=== PATIENT | female | born 1940 | race Native Hawaiian/Other Pacific Islander ===

== ENCOUNTER 2017-10-24 14:01 | Observation (INO) | payer MEDICARE ==
[2017-10-24 15:25] LABS: BASO # 0.1 K/uL (0.0-0.2); BASO % 0.9 % (0.0-2.0); HEMOGLOBIN 12.3 g/dL (12.0-16.0); LYMPH # 1.5 K/uL (1.0-4.3); LYMPH % 14.3 % (20.0-40.0); MEAN CELL VOLUME 91.9 fl (81.0-99.0); MEAN CORPUSCULAR HEMOGLOBIN 29.8 pg (27.0-31.0); MEAN CORPUSCULAR HGB CONC 32.4 g/dL (33.0-37.0); MEAN PLATELET VOLUME 7.4 fl (7.2-11.7); MONO # 0.5 K/uL (0.0-0.8); MONO % 5.3 % (0.0-10.0); NEUT # 8.2 K/uL (1.8-7.0); NEUT % 79.5 % (50.0-75.0); NRBC % 0.1 % (0.0-0.0); RBC 4.12 Mil/uL (3.80-5.20); RED CELL DISTRIBUTION WIDTH 15.4 % (11.5-14.5); WHITE BLOOD COUNT 10.4 K/uL (4.8-10.8)
[2017-10-24 16:06] LABS: ALB/GLOB RATIO 1.3 (1.0-2.1); ALBUMIN 4.8 g/dL (3.5-5.0); ALT/SGPT 45 U/L (9-52); AST/SGOT 48 U/L (14-36); BLOOD UREA NITROGEN 23 mg/dl (7-17); GFR AFRICAN-AMERICAN > 60; GFR NON-AFRICAN AMERICAN > 60
--- NOTE | 2017-10-24 16:13 | ED PDOC ---
HPI: Female Pain Time Seen by Provider: 10/24/17 14:33 Chief Complaint (Nursing): Female Genitourinary Chief Complaint (Provider): urinary retention History Per: Patient History/Exam Limitations: no limitations Onset/Duration Of Symptoms: Days (x1) Current Symptoms Are (Timing): Still Present Associated Symptoms: Loss Of Appetite, Constipation, Urinary Symptoms (urinary retention). denies: Nausea, Vomiting, Back Pain Additional Complaint(s): dEith Segovia is a 77 year old female, with a past medical history of HTN, hyperlipidemia, diabetes, gout and A-Fib, who presents to the emergency department complaining of inability to urinate onset since yesterday and constipation onset for x2 days. Patient states yesterday she had some pain with urination and when she voided it was in small amounts. Today, she hasn't been able to urinate for the last few hours. Patient reports small amounts of stool yesterday but has not been able to make a bowel movement today. Patient took Miralax, milk of magnesia, and tea to help her go but with no relief. Patient was recently hospitalized at the end of September for hyperkalemia and A-fib, at that time MR #[id number] Patient also reports some lower abdominal pain associated with loss of appetite but denies any back pain, rectal pain, nausea or vomit. No further medical complaints. PMD: Ladarius Winslow Past Medical History Reviewed: Historical Data, Nursing Documentation, Vital Signs Vital Signs: Last Vital Signs Temp 98.0 F 10/24/17 14:28 Pulse 79 10/24/17 14:28 Resp 18 10/24/17 14:28 BP 211/86 H 10/24/17 14:28 Pulse Ox 98 10/24/17 14:28 - Medical History PMH: Atrial Fibrillation, Diabetes (Type-2), HTN, Hyperlipidemia Other PMH: gout - Surgical History Surgical History: No Surg Hx - Family History Family History: States: No Known Family Hx - Social History Current smoker - smoking cessation education provided: No Alcohol: None Drugs: Denies - Home Medications Home Medications: Ambulatory Orders Medication Instructions Recorded Allopurinol [Zyloprim] 300 mg PO DAILY 10/24/17 Aspirin [Ecotrin] 81 mg PO DAILY 10/24/17 Atorvastatin [Lipitor] 40 mg PO DAILY 10/24/17 Chlorthalidone [Hygroton] 25 mg PO DAILY 10/24/17 MetFORMIN ER [Glucophage XR] 500 mg PO BID 10/24/17 Metoprolol Succinate [Toprol XL] 100 mg PO DAILY 10/24/17 [id number] CD [Cardizem CD] 120 mg PO DAILY 10/24/17 - Allergies Allergies/Adverse Reactions: Allergies Allergy/AdvReac Type Severity Reaction Status Date / Time No Known Allergies Allergy Verified 10/24/17 14:27 Review of Systems ROS Statement: Except As Marked, All Systems Reviewed And Found Negative Gastrointestinal: Positive for: Abdominal Pain (lower), Constipation, Other ( decreased appetite). Negative for: Nausea, Vomiting, Rectal Pain Genitourinary Female: Positive for: Dysuria, Other (urinary retention ) Musculoskeletal: Negative for: Back Pain Physical Exam - Reviewed Nursing Documentation Reviewed: Yes Vital Signs Reviewed: Yes - Physical Exam Appears: Positive for: Uncomfortable, In Acute Distress (mild painful) Head Exam: Positive for: ATRAUMATIC, NORMOCEPHALIC Skin: Positive for: Normal Color, Warm, Dry Eye Exam: Positive for: Normal appearance Neck: Positive for: Painless ROM Cardiovascular/Chest: Positive for: Regular Rate, Rhythm. Negative for: Murmur Respiratory: Positive for: Normal Breath Sounds. Negative for: Respiratory Distress Gastrointestinal/Abdominal: Positive for: Soft, Tenderness (suprapubic tender to palpation). Negative for: Mass, Guarding, Rebound Back: Negative for: L CVA Tenderness, R CVA Tenderness Extremity: Positive for: Normal ROM (upper and lower extremities). Negative for : Deformity, Swelling Neurologic/Psych: Positive for: Alert, Oriented. Negative for: Motor/Sensory Deficits - Laboratory Results Result Diagrams: 10/24/17 15:07 10/24/17 15:07 - ECG O2 Sat by Pulse Oximetry: 98 (RA) Pulse Ox Interpretation: Normal Medical Decision Making Medical Decision Making: Initial Impression: urinary retention and constipation. Differential includes but not limited to UTI, cystitis, renal calculi, colitis, and diverticulitis Initial Plan: --Abd & Pelvis w/o PO or IV Contrast [CT] --CMP --Magnesium --Lact Acid, Plasma --Phosphorus --Urine dipstick --CBC w/ differential --Toradol 15 mg IVP --Blood culture --Urine culture --Urinalysis --Reevaluation Serrato placed by nurse, pt felt better but still no stool output. Labs demonstrate acute renal insufficiency. Accession No. : [id number] Patient Name / ID : JOSÉ MIGUEL LAO / [id number] Exam Date : 10/24/2017 16:52:08 ( Approved ) Study Comment : Sex / Age : F / 77Y Creator : Juaquin Lara MD Dictator : Juaquin Lara MD Meter Reading Clerk : Water Regulator And Valve Repairer : Juaquin Lara MD Approver2 : Report Date : 10/24/2017 17:33:48 My Comment : PROCEDURE: CT Abdomen and Pelvis without intravenous contrast HISTORY: urinary retention COMPARISON: None. TECHNIQUE: Unenhanced study. Neither oral nor intravenous contrast administered. Total exam DLP = 423.02 mGy-cm. This CT exam was performed using one or more of the following dose reduction techniques: Automated exposure control, adjustment of the mA and/or kV according to patient size, and/or use of iterative reconstruction technique. FINDINGS: LOWER THORAX: Unremarkable. LIVER: Simple cyst right hepatic lobe near the dome of the diaphragm 9.4 x 8.5 cm GALLBLADDER AND BILE DUCTS: Unremarkable. PANCREAS: Unremarkable. No gross lesion or ductal dilatation. SPLEEN: Unremarkable. ADRENALS: Unremarkable. No mass. KIDNEYS AND URETERS: Unremarkable. No hydronephrosis. No solid mass. Incidental finding(s): Exophytic mid pole cyst left kidney 3.3 x 4.5 cm additional smaller cyst lower pole left kidney disease VASCULATURE: Calcified nonaneurysmal abdominal aorta. BOWEL: Unremarkable. No obstruction. No gross mural thickening. APPENDIX: Unremarkable. Normal appendix. PERITONEUM: Unremarkable. No free fluid. No free air. LYMPH NODES: Unremarkable. No enlarged lymph nodes. BLADDER: Urinary bladder decompressed by an indwelling Serrato catheter. No focal abnormalities with respect to the urinary bladder. REPRODUCTIVE: Enlarged uterus macro 8.4 x 12.1 cm. Small calcified uterine fibroids identified. BONES: No acute fracture. OTHER FINDINGS: None. IMPRESSION: Decompressed urinary bladder with satisfactorily positioned Serrato catheter. No focal abnormalities. Additional benign and/or incidental findings described above. KRYSTYNA Winslow, Placed in observation for further evaluation of renal failure and urinary retention. BP is chronically elevated and has improved since arrival and serrato placement. Scribe Attestation: Documented by Randal Roberson, acting as a scribe for Liza Vazquez MD Provider Scribe Attestation: All medical record entries made by the Scribe were at my direction and personally dictated by me. I have reviewed the chart and agree that the record accurately reflects my personal performance of the history, physical exam, medical decision making, and the department course for this patient. I have also personally directed, reviewed, and agree with the discharge instructions and disposition. Disposition - Clinical Impression Clinical Impression: Urinary retention, Hypertension, Urinary tract infection Counseled Patient/Family Regarding: Studies Performed, Diagnosis - Disposition Disposition Time: 17:00 Condition: FAIR
[2017-10-24 16:57] LABS: URINE BACTERIA OCC (<OCC); URINE BILIRUBIN NEGATIVE (NEGATIVE); URINE BLOOD SMALL (NEGATIVE); URINE CLARITY SLIGHTY-CLOUDY (Clear); URINE COLOR YELLOW (YELLOW); URINE GLUCOSE (UA) NEG (Normal); URINE HYALINE CAST 0-2 /hpf (0-2); URINE LEUKOCYTE ESTERASE SMALL Leu/uL (Negative); URINE PROTEIN 100 mg/dL (NEGATIVE); URINE UROBILINOGEN 0.2-1.0 mg/dL (0.2-1.0)
--- NOTE | 2017-10-24 17:35 | CT ---
PROCEDURE: CT Abdomen and Pelvis without intravenous contrast HISTORY: urinary retention COMPARISON: None. TECHNIQUE: Unenhanced study. Neither oral nor intravenous contrast administered. Total exam DLP = 423.02 mGy-cm. This CT exam was performed using one or more of the following dose reduction techniques: Automated exposure control, adjustment of the mA and/or kV according to patient size, and/or use of iterative reconstruction technique. FINDINGS: LOWER THORAX: Unremarkable. LIVER: Simple cyst right hepatic lobe near the dome of the diaphragm 9.4 x 8.5 cm GALLBLADDER AND BILE DUCTS: Unremarkable. PANCREAS: Unremarkable. No gross lesion or ductal dilatation. SPLEEN: Unremarkable. ADRENALS: Unremarkable. No mass. KIDNEYS AND URETERS: Unremarkable. No hydronephrosis. No solid mass. Incidental finding(s): Exophytic mid pole cyst left kidney 3.3 x 4.5 cm additional smaller cyst lower pole left kidney disease VASCULATURE: Calcified nonaneurysmal abdominal aorta. BOWEL: Unremarkable. No obstruction. No gross mural thickening. APPENDIX: Unremarkable. Normal appendix. PERITONEUM: Unremarkable. No free fluid. No free air. LYMPH NODES: Unremarkable. No enlarged lymph nodes. BLADDER: Urinary bladder decompressed by an indwelling Hearn catheter. No focal abnormalities with respect to the urinary bladder. REPRODUCTIVE: Enlarged uterus macro 8.4 x 12.1 cm. Small calcified uterine fibroids identified. BONES: No acute fracture. OTHER FINDINGS: None. IMPRESSION: Decompressed urinary bladder with satisfactorily positioned Hearn catheter. No focal abnormalities. Additional benign and/or incidental findings described above.
[2017-10-24] MEDS ORDERED: cefTRIAXone (Rocephin) 1 gm Inj ONE (18:20)
[2017-10-24] MEDS: Metoprolol Succinate 100 mg XL Tab PO SCH (20:01)
[2017-10-25 07:52] VITALS: BP 152/72; PULSE 63; RESP 18; TEMP 98; O2SAT 96
[2017-10-25] MEDS: Metoprolol Succinate 100 mg XL Tab PO SCH (08:57)
[2017-10-25] MEDS: diltiaZEM 120 mg/24 Hours CD Cap PO SCH ×2 (08:57→08:58)
[2017-10-25] MEDS ORDERED: Patient's Own Med (Metformin Er [Glucophage Xr] 500 mg) PO SCH (09:00)
--- NOTE | 2017-10-25 11:06 | CP.PCM.HP ---
History of Present Illness - History of Present Illness History of Present Illness: 77 yo ,f, PMHx/o HTN, DM, A fib, HLD presents c/o inability to urinate started on Tuesday associated with mild dysuria. Patient reports she took a diuretic chlortalidone but was unable to pass urine. She reports also constipation for the last 2 days. Patient took miralax and milk mg with mild improvement. Patient reports that on Tuesday she had a [place] food and is not sure if that caused urinary problems. She denies [place], n,v,d, chest pain, SOB, hx/o urinary problems Patient seen and evaluated with Dr Winslow bedside. Patient with serrato producing good diuresis. Urologist recommendations are to discharge patient with serrato and f/u in 7 day with him. Patient was taken serrato out, but unable to urinate spontaneously. Serrato was placed again and will be discharged with ciprofloxacine and bethanechol PMD: Dr Winslow PMHX: HTN, DM, A fib, HLD Allegies: NKDa PSurghx: none PShx: + ETOH social , reg rect drugs, cig Present on Admission - Present on Admission Any Indicators Present on Admission: No History of DVT/PE: No History of Uncontrolled Diabetes: No Urinary Catheter: No Decubitus Ulcer Present: No Review of Systems - Review of Systems All systems: reviewed and no additional remarkable complaints except - Gastrointestinal Additional comments: lower abd pain - Genitourinary Genitourinary: Difficulty Urinating, Dysuria Additional comments: urinary retention Past Patient History - Past Medical History & Family History Past Medical History?: Yes - Past Social History Alcohol: None Drugs: Denies - CARDIAC Hx Atrial Fibrillation: Yes Hx Hypertension: Yes - PULMONARY Hx Respiratory Disorders: No - NEUROLOGICAL Hx Neurological Disorder: No - HEENT Hx HEENT Problems: No - RENAL Hx Chronic Kidney Disease: No - ENDOCRINE/METABOLIC Hx Endocrine Disorders: Yes Hx Diabetes Insipidus: Yes - HEMATOLOGICAL/ONCOLOGICAL Hx Blood Disorders: No - MUSCULOSKELETAL/RHEUMATOLOGICAL Hx Falls: No - GASTROINTESTINAL Hx Gastrointestinal Disorders: No - GENITOURINARY/GYNECOLOGICAL Hx Genitourinary Disorders: Yes - PSYCHIATRIC Hx Substance Use: No - SURGICAL HISTORY Hx Surgeries: No - ANESTHESIA Hx Anesthesia: Yes Hx Anesthesia Reactions: No Meds Home Medications: Home Medication List Medication Instructions Recorded Confirmed Type Bethanechol [Urecholine] 50 mg PO BID #28 tab 05/08/18 Rx Ciprofloxacin HCl [Cipro] 500 mg PO BID #14 tablet 10/25/17 Rx Allergies/Adverse Reactions: Allergies Allergy/AdvReac Type Severity Reaction Status Date / Time No Known Allergies Allergy Verified 10/24/17 14:27 Physical Exam - Constitutional Appears: No Acute Distress - Head Exam Head Exam: ATRAUMATIC, NORMOCEPHALIC - Eye Exam Eye Exam: Normal appearance - ENT Exam ENT Exam: Mucous Membranes Moist - Neck Exam Neck exam: Positive for: Normal Inspection - Respiratory Exam Respiratory Exam: Clear to Auscultation Bilateral. absent: Rales, Rhonchi, Wheezes - Cardiovascular Exam Cardiovascular Exam: REGULAR RHYTHM, +S1, +S2 - GI/Abdominal Exam GI & Abdominal Exam: Normal Bowel Sounds, Soft. absent: Tenderness - Extremities Exam Extremities exam: Positive for: normal inspection - Neurological Exam Neurological exam: Alert, Oriented x3 - Psychiatric Exam Psychiatric exam: Normal Affect, Normal Mood - Skin Skin Exam: Intact Results - Vital Signs Recent Vital Signs: Last Vital Signs Temp 98.0 F 10/25/17 07:51 Pulse 63 10/25/17 08:57 Resp 18 10/25/17 07:51 BP 152/72 H 10/25/17 08:57 Pulse Ox 96 10/25/17 07:51 - Labs Result Diagrams: 10/24/17 15:07 10/24/17 15:07 Labs: Laboratory Results - last 24 hr 10/24/17 10/24/17 10/24/17 15:07 15:07 15:15 WBC 10.4 RBC 4.12 Hgb 12.3 Hct 37.9 MCV 91.9 MCH 29.8 MCHC 32.4 L RDW 15.4 H Plt Count 334 MPV 7.4 Neut % (Auto) 79.5 H Lymph % (Auto) 14.3 L Darke % (Auto) 5.3 Eos % (Auto) 0.0 Baso % (Auto) 0.9 Neut # (Auto) 8.2 H Lymph # (Auto) 1.5 Darke # (Auto) 0.5 Eos # (Auto) 0.0 Baso # (Auto) 0.1 Sodium 134 Potassium 4.4 Chloride 98 Carbon Dioxide 18 L Anion Gap 22 H BUN 23 H Creatinine 0.9 Est GFR ( Amer) > 60 Est GFR (Non-Af Amer) > 60 Random Glucose 114 H Lactic Acid 1.3 Calcium 10.0 Phosphorus 3.3 Magnesium 1.8 Total Bilirubin 1.2 AST 48 H ALT 45 Alkaline Phosphatase 104 Total Protein 8.3 H Albumin 4.8 Globulin 3.5 Albumin/Globulin Ratio 1.3 Urine Color Urine Clarity Urine pH Ur Specific [place] Urine Protein Urine Glucose (UA) Urine Ketones Urine Blood Urine Nitrate Urine Bilirubin Urine Urobilinogen Ur Leukocyte Esterase Urine RBC (Auto) Urine Microscopic WBC Urine Bacteria Hyaline Casts 10/24/17 16:10 WBC RBC Hgb Hct MCV MCH MCHC RDW Plt Count MPV Neut % (Auto) Lymph % (Auto) Darke % (Auto) Eos % (Auto) Baso % (Auto) Neut # (Auto) Lymph # (Auto) Darke # (Auto) Eos # (Auto) Baso # (Auto) Sodium Potassium Chloride Carbon Dioxide Anion Gap BUN Creatinine Est GFR ( Amer) Est GFR (Non-Af Amer) Random Glucose Lactic Acid Calcium Phosphorus Magnesium Total Bilirubin AST ALT Alkaline Phosphatase Total Protein Albumin Globulin Albumin/Globulin Ratio Urine Color Yellow Urine Clarity Slighty-cloudy Urine pH 6.0 Ur Specific [place] 1.013 Urine Protein 100 Urine Glucose (UA) Neg Urine Ketones Negative Urine Blood Small Urine Nitrate Negative Urine Bilirubin Negative Urine Urobilinogen 0.2-1.0 Ur Leukocyte Esterase Small Urine RBC (Auto) 6 H Urine Microscopic WBC 34 H Urine Bacteria Occ H Hyaline Casts 0-2 Assessment & Plan - Assessment and Plan (Free Text) Plan: Assessment/Plan 1)Urinary retention secondary to UTI vs constipation -Ct Abd: small uterine fibroids -Urologist consult appreciated -c/w serrato. DC with serrato and Abx 2)UTI -Ua positive -s/p Ceftriaxone in Ed -cipro Abx on discharge -urine cx neg gram rods. f/u sensitivity 3) DM -controlled -c/w home medications 4) A fib -controlled -c/w home meds 5) DVT Prophylaxis -SCD
--- NOTE | 2017-10-25 11:37 | CP.PCM.PN ---
Subjective - Date & Time of Evaluation Date of Evaluation: 10/25/17 Time of Evaluation: 11:31 - Subjective Subjective: 77 year old female who presented with abdominal pain and was found to be in urinary retention. Serrato was placed. pts abdominal pain improved. CT showsno hydronephrosis or stone. Urine c&s shows gram neg rods. sensitivites. pending Suggest Treat uti w sensitveantibiotics give voiding trial if fails to void or has large pvr re insert serrato prior to discharge gu fu in 1 to two weeks recomended Thanks Albert Objective - Vital Signs/Intake and Output Vital Signs (last 24 hours): Temp Pulse Resp BP Pulse Ox 98.0 F 63 18 152/72 H 96 10/25/17 07:51 10/25/17 08:57 10/25/17 07:51 10/25/17 08:57 10/25/17 07:51 - Medications Medications: Current Medications Allopurinol (Zyloprim) 300 mg PO DAILY [facility] Last Admin: 10/25/17 08:57 Dose: 300 mg Aspirin (Ecotrin) 81 mg PO DAILY [facility] Last Admin: 10/25/17 08:57 Dose: 81 mg Atorvastatin Calcium (Lipitor) 40 mg PO HS [facility] Last Admin: 10/24/17 21:19 Dose: 40 mg Chlorthalidone (Hygroton) 25 mg PO DAILY [facility] Last Admin: 10/25/17 08:58 Dose: Not Given Diltiazem HCl (Cardizem Cd) 120 mg PO DAILY [facility] Last Admin: 10/25/17 08:58 Dose: Not Given Metformin HCl (Glucophage) 500 mg PO BID [facility] Last Admin: 10/25/17 08:57 Dose: 500 mg Metoprolol Succinate (Toprol Xl) 100 mg PO DAILY [facility] Last Admin: 10/25/17 08:57 Dose: 100 mg - Labs Labs: 10/24/17 15:07 10/24/17 15:07
[2017-10-25] MEDS ORDERED: Bethanechol 50 MG TAB PO SCH (17:00)
== END 2017-10-25 18:00 | disposition home or self-care (01) ==
LOC: H.ER 14:01 → H.ERHOLD 17:28 → H.MEDSURG1 19:35
PROVIDERS: ADMIT Family Medicine; ATTEND Family Medicine
DX: N39.0 Urinary tract infection, site not specified (principal); B96.20 Unspecified Escherichia coli [E. coli] as the cause of diseases classified elsewhere; R33.8 Other retention of urine; I48.91 Unspecified atrial fibrillation; E11.9 Type 2 diabetes mellitus without complications; I10 Essential (primary) hypertension; E78.5 Hyperlipidemia, unspecified; K59.00 Constipation, unspecified; Z79.82 Long term (current) use of aspirin; Z79.84 Long term (current) use of oral hypoglycemic drugs
CPT/HCPCS: 74176; 80053; 81003; 82948; 83605; 83735; 84100; 85025; 87040; 87086; 96374; 99283; G0378; J0696; J1885